=== PATIENT | female | born 1995 | race Caucasian/White ===

== ENCOUNTER 2024-08-22 06:45 | Inpatient (IN) ==
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
[2024-08-22 07:44] LABS: Basophils # (auto) 0.02 K/uL (0.00-0.20); Basophils % (auto) 0.3 %; Eosinophils # (auto) 0.07 K/uL (0.00-0.50); Eosinophils % (auto) 1.1 %; Hematocrit (blood only) 32.6 % (37.0-47.0); Hemoglobin 10.7 g/dl (12.0-16.0); Immature Granulocytes # (auto) 0.04 K/uL (0.01-0.20); Immature Granulocytes % (auto) 0.6 %; Lymphocytes # (auto) 1.99 K/uL (1.20-3.40); Lymphocytes % (auto) 30.6 %; Mean Corpuscular Hemoglobin 27.7 pg (25.0-34.0); Mean Corpuscular Hgb Conc 32.8 g/dL (32.0-36.0); Mean Corpuscular Volume 84.5 fL (80.0-100.0); Mean Platelet Volume 11.4 fL (9.4-12.4); Monocytes # (auto) 0.59 K/uL (0.11-0.59); Monocytes % (auto) 9.1 %; Neutrophils # (auto) 3.79 K/uL (1.40-6.50); Neutrophils % (auto) 58.3 %; Platelet Count 231 K/uL (130-400); RDW Coefficient of Variation 14.4 % (11.5-14.5); Red Blood Count 3.86 M/uL (4.20-5.40)
[2024-08-22] MEDS ORDERED: SODIUM CHLORIDE 0.9% 1,000 ML IV SCH (08:00)
[2024-08-22] MEDS: ACETAMINOPHEN 500 MG TAB PO SCH (08:32)
[2024-08-22] MEDS ORDERED: PHENYLEPHRINE 100MCG/ML 5ML SYR ONE (08:37)
[2024-08-22] MEDS ORDERED: MoRPHine SULFATE PF 1 MG/ML 10 ML AMP/VIAL ONE (08:37)
[2024-08-22] MEDS ORDERED: DEXAMETHASONE SOD INJ 4 MG/ML VIAL ONE (08:37)
[2024-08-22] MEDS ORDERED: fentaNYL citrate PF 100 MCG/2 ML VIAL ONE (08:37)
[2024-08-22] MEDS ORDERED: ONDANSETRON INJ 2 MG/ML 2 ML VIAL ONE (08:37)
[2024-08-22] MEDS ORDERED: PHENYLEPHRINE HCL 25 MG/250 ML NSS IV ONE (08:38)
[2024-08-22] MEDS: SODIUM CHLORIDE 0.9% 1,000 ML IV SCH (09:02)
[2024-08-22] MEDS: CITRIC ACID/SODIUM CITRATE 15 ML UDC PO SCH (10:27)
[2024-08-22] MEDS: ceFAZolin 2000MG 2,000 MG/15 ML SYR IV SCH (10:29)
[2024-08-22] MEDS ORDERED: diphenhydrAMINE 50 MG/ML VIAL IV PRN (10:55)
[2024-08-22] MEDS ORDERED: NALBUPHINE HCL INJ 10 MG/ML AMP IV PRN (10:55)
[2024-08-22] MEDS ORDERED: PROMETHAZINE 6.25 MG/50.25 ML BAG IV PRN (10:55)
[2024-08-22] MEDS ORDERED: NALOXONE HCL 0.4 MG/1 ML VIAL/CARP IV PRN (10:55)
[2024-08-22] MEDS ORDERED: NALOXONE HCL 1 MG in SODIUM CHLORIDE 0.9% 1,000 ML IV PRN (10:55)
[2024-08-22] MEDS ORDERED: NALOXONE HCL 0.08 MG in SYRINGE 1.8 ML IV PRN (10:55)
[2024-08-22] MEDS ORDERED: HYDROmorphone INJ 0.5 MG/0.5 ML SYR IV PRN (10:55)
[2024-08-22] MEDS ORDERED: ONDANSETRON INJ 2 MG/ML 2 ML VIAL IV PRN (10:55)
[2024-08-22] MEDS ORDERED: MoRPHine SULFATE PF 1 MG/ML 10 ML AMP/VIAL INT SPINAL ONE (10:55)
[2024-08-22] MEDS ORDERED: oxyCODONE HCL IR 5 MG TAB (IMMEDIATE RELEASE) PO PRN (10:55)
[2024-08-22] MEDS ORDERED: ePHEDrine sulfate 50 MG/ML AMP IV PRN (10:55)
[2024-08-22] MEDS ORDERED: NO NARCOTICS OR SEDATIVES SCH (11:00)
[2024-08-22] MEDS ORDERED: DC INTRASPINAL MORPHINE SCH (11:00)
[2024-08-22] MEDS: OXYTOCIN 20 UNITS/LR 1,002 ML IV SCH (11:15)
--- NOTE | 2024-08-22 11:54 | Anesthesiology Progress Note ---
Date of Service August 22, 2024 Anesthesia Post Procedure Vital Signs Vital Signs: Temp Pulse Pulse Resp BP BP Pulse Ox 08/22/24 11:51 61 106/56 L 08/22/24 11:50 59 L 98 08/22/24 10:36 71 115/68 08/22/24 09:36 74 95/55 L 08/22/24 09:00 18 08/22/24 09:00 18 08/22/24 08:35 69 114/78 08/22/24 07:46 36.6 C 16 08/22/24 07:24 36.6 C 86 16 104/69 08/22/24 07:01 16 08/22/24 07:01 36.6 C 16 08/22/24 06:59 86 104/69 O2 Del Method 08/22/24 11:51 08/22/24 11:50 08/22/24 10:36 08/22/24 09:36 08/22/24 09:00 08/22/24 09:00 08/22/24 08:35 08/22/24 07:46 Room Air 08/22/24 07:24 08/22/24 07:01 08/22/24 07:01 08/22/24 06:59 Notes Mental Status: alert / awake / arousable and participated in evaluation Patient Amnestic to Procedure: No Nausea / Vomiting: adequately controlled Pain: adequately controlled Airway Patency, RR, SpO2: stable & adequate BP & HR: stable & adequate Hydration State: stable & adequate Neuraxial Anesthesia: was administered and sensory block is resolving Anesthetic Complications: no major complications apparent and Pt Satisfied with anesthetic care
--- NOTE | 2024-08-22 12:06 | Post Operative Brief Note ---
Immediate Post Op Note Date of Surgery August 22, 2024 Pre & Post Diagnosis Operation Date: 08/22/24 09:05 Pre-Op Diagnosis: Breech at term. Post-Op Diagnosis: Breech at term. Delivery of live male child at 1109. I identified the patient and participated in the time-out.: Yes Procedure Operation Date: 08/22/24 09:05 Actual Procedures p Section in LD (Delivery of Baby through Abdominal Incision)delivery of live male child at 1109 - Michelle Howard MD, FACOG Surgeon Michelle Howard MD, FACOG Crew Dispatcher Natalie Domingo RN Quantitative Blood Loss (QBL) 261 Findings Consistent with Post-Op Diagnosis gravid uterus with a small septum in fundus bilateral ovaries and tubes are normal Specimens Specimen Description: A: Placenta hold B: Cord blood Drains Nunes Catheter (inserted after spinal) Anesthesia Type Spinal Complications none Disposition Accompanied Patient To Recovery: Yes Disposition: L&D
[2024-08-22] MEDS ORDERED: MAGNESIUM HYDROXIDE SUSP 30 ML UDC PO PRN (12:08)
[2024-08-22] MEDS ORDERED: BENZOCAINE 20% SPRY 85 APPLN/85 GM CAN EXT PRN (12:08)
[2024-08-22] MEDS ORDERED: CALCIUM CARBONATE 500 MG CHEWABLE TAB PO PRN (12:08)
[2024-08-22] MEDS ORDERED: HYDROCORTISONE ACETATE 25 MG SUPP PR PRN (12:08)
[2024-08-22] MEDS ORDERED: SENNA 8.6 MG TAB PO PRN (12:08)
[2024-08-22] MEDS: KETOROLAC 30 MG/ML VIAL IV SCH (12:28)
--- NOTE | 2024-08-22 12:39 | Operative Report ---
Post Operative Report Pre & Post Diagnosis Operation Date: 08/22/24 09:05 Pre-Op Diagnosis: Breech at term. Post-Op Diagnosis: Breech at term. Delivery of live male child at 1109. I identified the patient and participated in the time-out.: Yes Procedure Operation Date: 08/22/24 09:05 Actual Procedures p Section in LD (Delivery of Baby through Abdominal Incision)delivery of live male child at 1109 - Michelle Howard MD, FACOG Surgeon Michelle Howard MD, FACOG Cloth Napping Supervisor Natalie Domingo RN/ Haritha Roberts RN Quantitative Blood Loss (QBL) 261 Findings Consistent with Post-Op Diagnosis gravid uterus with minor fundal septum present ovaries and tubes are grossly normal Specimens placenta to hold Drains Nunes to straight drainage- clear urine at end of case Anesthesia Type Spinal Complications none Disposition Accompanied Patient To Recovery: Yes Disposition: L&D Indications Persistent breech presentation at term Diet-controlled GDM Description of Procedure After the patient received adequate spinal anesthesia she was prepped and draped in usual sterile fashion. A low transverse skin incision was made with a scalpel and carried to the fascia with the same scalpel. The fascial incision was then extended with Barragan scissors the edges then grasped with Juan clamps and the underlying rectus muscle was bluntly sharply dissected off of the overlying fascia. The rectus muscle were then bluntly divided along the midline and the underlying peritoneum elevated and entered sharply. The bladder was taken down off the anterior surface of the uterus with Metzenbaum scissors and placed behind the bladder blade. The lower uterine segment was entered with a scalpel and extended transversely by stretching the incision in a cephalad and caudad direction. Membranes were ruptured for clear fluid. With moderate fundal pressure, the male was delivered from the brett breech presentation. After the body had been delivered the head following easily. There was a loose nuchal cord present which was reduced after delivery of the head. He was vigorous crying and moving all 4 limbs. The cord was clamped and cut, and the was handed off to Dr. Garcia and nursery staff were in attendance for the delivery. After cord was obtained, the placenta was expressed intact with a three-vessel cord. The uterine cavity was explored and found to be free of any placental tissue or membranes. There was noted to be a very small uterine septum present in the fundus of the uterus. The uterine incision was then closed in 2 layers in a running locking imbricating fashion with 0 Monocryl. Hemostasis noted to be excellent. The posterior cul-de-sac was suctioned for small amount of blood. The uterus was then gently placed back inside the uterus. The incision was examined once more and continue to have excellent hemostasis. The gutters were explored and found the free of any clot or fluid. The rectus muscle were then brought together on the midline with individual stitches of 0 Monocryl. The fascia was closed in a running fashion with 0 Vicryl. The skin edges were closed in a subcuticular fashion with 4-0 Vicryl after irrigating the subcutaneous layer. Mother and infant were doing well after delivery and in stable condition back in labor and delivery. I attest to the content of the Intraoperative Record and any orders documented therein. Any exceptions are noted below. OB Procedure Charges [id number]
[2024-08-22] MEDS: DIPHTHER/TETAN/PERTUS Vaccine (Tdap, Adol/Adult) 0.5mL IM ONE (13:44)
[2024-08-22] MEDS: SIMETHICONE 80 MG CHEW PO SCH (13:55)
[2024-08-22] MEDS: KETOROLAC 30 MG/ML VIAL ONE (15:21)
[2024-08-22] MEDS: ACETAMINOPHEN 325 MG TAB PO SCH (18:11)
[2024-08-22] MEDS: DOCUSATE SODIUM 100 MG CAP PO SCH (21:00)
[2024-08-23] MEDS ORDERED: HYDROmorphone INJ 0.5 MG/0.5 ML SYR IV PRN (04:56)
[2024-08-23] MEDS ORDERED: diphenhydrAMINE 50 MG/ML VIAL IV PRN (04:56)
[2024-08-23] MEDS ORDERED: ONDANSETRON INJ 2 MG/ML 2 ML VIAL IV PRN (04:56)
[2024-08-23] MEDS ORDERED: PROMETHAZINE 12.5 MG/50.5 ML BAG IV PRN (04:56)
[2024-08-23] MEDS ORDERED: oxyCODONE HCL IR 5 MG TAB (IMMEDIATE RELEASE) PO PRN (04:56)
[2024-08-23] MEDS ORDERED: diphenhydrAMINE Capsule 25 MG CAP PO PRN (04:56)
[2024-08-23] MEDS ORDERED: ACETAMINOPHEN 500 MG TAB PO SCH (06:00)
[2024-08-23] MEDS ORDERED: CITRIC ACID/SODIUM CITRATE 15 ML UDC PO SCH (06:00)
[2024-08-23 06:11] LABS: Basophils # (auto) 0.03 K/uL (0.00-0.20); Basophils % (auto) 0.2 %; Eosinophils # (auto) 0.02 K/uL (0.00-0.50); Eosinophils % (auto) 0.2 %; Hematocrit (blood only) 29.8 % (37.0-47.0); Hemoglobin 9.9 g/dl (12.0-16.0); Immature Granulocytes # (auto) 0.06 K/uL (0.01-0.20); Immature Granulocytes % (auto) 0.5 %; Lymphocytes # (auto) 1.74 K/uL (1.20-3.40); Lymphocytes % (auto) 13.1 %; Mean Corpuscular Hgb Conc 33.2 g/dL (32.0-36.0); Mean Corpuscular Volume 84.2 fL (80.0-100.0); Mean Platelet Volume 11.2 fL (9.4-12.4); Monocytes # (auto) 0.53 K/uL (0.11-0.59); Neutrophils # (auto) 10.88 K/uL (1.40-6.50); Platelet Count 194 K/uL (130-400); RDW Coefficient of Variation 14.5 % (11.5-14.5); RDW Standard Deviation 44.3 fL (36.4-46.3); Red Blood Count 3.54 M/uL (4.20-5.40); White Blood Count 13.26 K/ul (4.8-10.8)
[2024-08-23] MEDS: FERROUS SULFATE 325 MG TAB PO SCH (07:37)
[2024-08-23] MEDS: PRENATAL VITAMIN 1 TAB PO SCH (07:37)
--- NOTE | 2024-08-23 07:40 | Obstetrical Progress Note ---
Date of Service August 23, 2024 Assessment & Plan (1) delivery delivered: Plan 30 years P1 foll El LTCS for Breech presentation. Both mom and baby doing well. Continue care as per protocol. Encouraged nursing with mother's milk. Encouraged ambulation. Discharge tomorrow as per protocol. Admission and Anticipated Discharge Date Admission Date: August 22, 2024 Supervising Physician Co-Signing Physician Notes Resident Physician Supervision Note: I was present with Dr. Gonzalez during the history and exam. I discussed the case with the resident and agree with the findings and plan as documented in the note. Any exceptions or clarifications are listed here: stable, routine care. breast feeding. voiding. eating. abd soft ff 2 down nt, incision c/d/i and bruising. a/p pod#1 s/p c/s. hgb noted. doing well. routine care. Documented By: Edelmira Herndon MD, FACOG Subjective 30 years P1 1st POD following delivery for Breech No active complains Both mom and baby doing well. Mom Lying comfortable on bed. Pain: Mild, intermittent, manageable on painkillers. Lochia: Moderate Diet: Regular OB diet Gas: Not aware of passing, but no abdominal distension Peeing: Passed Urine after bowens's removal Ambulation: to Bathroom/ Corridor without any complication Answered her queries. Review of Systems Review of Systems: No SOB, chest pain, leg pain No dizziness, headache, palpitation No Blurring of vision , fever Physical Exam Physical Exam: General: Alert and oriented. No acute distress. CVS: S1 S2+ No murmurs, regular rhythm. Respiratory: CTA bilaterally. No rhonchi, wheezes, or crackles. No increased work of breathing. Abdomen: Bowel sound +. Soft, nontender Uterus: Fundus firm and palpable few cm below the umbilicus. Incision site looks healthy: Dry, No swelling, Mild Erythema below incision site. Lower extremities: No LE edema. No deep calf pain. Results & Data Vital Signs (Past 12 Hours) Vital Signs Temp Pulse Resp BP Pulse Ox O2 Del Method 08/23/24 04:15 36.5 C 65 16 111/66 97 Room Air 08/23/24 04:00 16 96 08/23/24 03:00 17 96 08/23/24 02:00 16 96 08/23/24 01:00 16 96 08/23/24 00:00 16 96 08/23/24 00:00 Room Air 08/23/24 00:00 36.5 C 62 16 102/87 97 Room Air 08/22/24 23:00 16 97 08/22/24 22:00 16 99 08/22/24 21:00 16 98 08/22/24 20:00 16 99 Resident Activity Tracking Resident Involvement: Resident Care Provided Care Provided: OB Delivery
[2024-08-23] MEDS: IBUPROFEN 600 MG TAB PO SCH (11:36)
[2024-08-23] MEDS ORDERED: KETOROLAC 30 MG/ML VIAL IV PRN (12:08)
[2024-08-23] MEDS: bisacodyL 5 MG TABEC PO SCH (20:56)
[2024-08-23 21:32] VITALS: RESP 16
--- NOTE | 2024-08-24 05:53 | Obstetrical Progress Note ---
Date of Service August 24, 2024 Assessment & Plan (1) delivery delivered: Plan 30 years P1 foll El LTCS for Breech presentation. 2nd POD Both mom and baby doing well. Discharge today as per protocol. Admission and Anticipated Discharge Date Admission Date: August 22, 2024 Supervising Physician Co-Signing Physician Notes Resident Physician Supervision Note: I interviewed and examined the patient. Discussed with Dr. Gonzalez and agree with findings and plan as documented in the note. Any exceptions or clarifications are listed here: POD2 doing well. Desires DC home. DC instructions reviewed, followup in office 6w. Rx #10 tabs percocet sent to [facility] pharmacy. Documented By: iMsti Frederick, Subjective 29 years P1 2nd POD following delivery for Breech No active complains Both mom and baby doing well. Mom Lying comfortable on bed. Pain: Mild, intermittent, manageable on painkillers. Lochia: Moderate Diet: Regular OB diet Gas: Not aware of passing, but no abdominal distension Peeing: Passed. Ambulation: to Bathroom/ Corridor without any complication Answered her queries. Review of Systems Review of Systems: No SOB, chest pain, leg pain No dizziness, headache, palpitation No Blurring of vision , fever Physical Exam Physical Exam: General: Alert and oriented. No acute distress. CVS: S1 S2+ No murmurs, regular rhythm. Respiratory: CTA bilaterally. No rhonchi, wheezes, or crackles. No increased work of breathing. Abdomen: Bowel sound +. Soft, nontender Uterus: Fundus firm and palpable few cm below the umbilicus. Incision site looks healthy: Dry, No swelling, Bruising noted below incision site, better than yesterday. Lower extremities: No LE edema. No deep calf pain. Results & Data Vital Signs (Past 12 Hours) Vital Signs Temp Pulse Resp BP Pulse Ox O2 Del Method 08/23/24 23:45 37.2 C 90 16 123/82 97 Room Air 08/23/24 20:40 36.8 C 93 H 16 110/71 96 Room Air Resident Activity Tracking Resident Involvement: Resident Care Provided Care Provided: OB Delivery
[2024-08-24 06:54] LABS: Hematocrit (blood only) 29.4 % (37.0-47.0); Hemoglobin 9.6 g/dl (12.0-16.0)
[2024-08-24 09:44] VITALS: BP 114/78; PULSE 76; TEMP 98.2; O2SAT 98
[2024-08-24] MEDS: IBUPROFEN 600 MG TAB PO PRN (11:22)
[2024-08-24] MEDS ORDERED: bisacodyL 10 MG SUPP PR PRN (12:08)
--- NOTE | 2024-08-24 12:51 | Discharge Summary ---
Date of Service August 24, 2024 Admission HPI Per Admitting Provider Patient is a 29 yo female EDC 08/27/24 presents for primary LTCS because of breech presentation. complicated by diet controlled GDM. testing was reassuring. GBS- negative Blood type- A positive Admission Exam (Per Admitting) Constitutional WD/WN, vitals as above Respiratory normal respiratory effort, lungs clear to auscultation Cardiovascular RRR, no murmur, no edema Psychiatric A+Ox3, euthymic affect Genitourinary OB Exam Abdomen: + fundal height (term), + heart tones (150), + breech and + estimated weight (6-7 pounds) Discharge Data Consultations 08/22/24 06:55 Consult Anesthesiology Stat Procedures Performed Operation Date: 08/22/24 09:05 Actual Procedures p Section in LD (Delivery of Baby through Abdominal Incision)delivery of live male child at [facility] - Michelle Howard MD, [facility] (1) delivery delivered: Plan 30 years P1 foll El LTCS for Breech presentation. 2nd POD Both mom and baby doing well. Discharge today as per protocol. Discharge Plan Discharge Items Patient Disposition: Home - Self-Care Reason For Visit: Breech Presentation Discharge Diagnosis: S/P C section Activity: Per Instructions section Non-emergency contact: Primary Care Provider and Tile Picker Call non-emergency contact if: your pain is worsening and your temperature is above 101 Follow-up/Referrals: PCP,NO [Primary Care Provider] - Diet: Regular OB Addtl Attending Provider Instructions: ACTIVITY RECOMMENDATIONS: * Gradual return to full activity over the next 2-3 weeks. * No lifting - nothing heavier than baby over the next 2-3 weeks. * Do not engage in vigorous exercise, sexual activity or sports until cleared by your physician. * Do not drive or operate any motorized equipment until cleared by your physician. * You may shower/bathe daily. MEDICATIONS: For discomfort or pain, you may use Acetaminophen (Tylenol), Ibuprofen (Advil), or Naproxen (Aleve) following the package directions. For constipation you may use Colace following the package directions. BREAST CARE: If you are not breast feeding: * Wear a supportive bra 24 hours a day for one to two weeks. * Avoid stimulating your breasts and nipples as much as possible during the first few weeks after delivery. * When taking a shower, have the warm water hit your back, not breasts. * When your breasts feel full, apply ice packs. Usually three to four times a day helps ease the discomfort. * Take a mild pain medication (Tylenol / Motrin) when you are uncomfortable. If breast feeding: * Use breast milk to lubricate nipples. Lansinoh cream may be used for sore nipples. You do not need to remove cream prior to breast feeding. If using a different brand of cream, check the label for directions regarding removal of cream prior to nursing. * Wear a supportive bra. * If having problems with breasts or breast feeding, call a [employer] commerce consultant or your health care provider. SPECIAL CARE INSTRUCTIONS: When you are discharged from the hospital, it is important for you to follow the instructions listed below: * During the first week at home, you should be able to care for yourself and your baby. In addition, the usual light household activities are encouraged. * Limit your activities to the way you feel. Do not try to clean the house or move furniture. Be sensible. * If you actively engage in sports and have done so up until the time of your delivery, you may resume these activities as soon as you feel able. This may take up to one month or even longer. Use good judgment. * Continue to take your vitamins for at least six weeks after the of your baby. * Your diet need not be limited unless you were on a special diet before your delivery. Breast-feeding mothers need around 2500 calories per day and at least 64-80 ounces of fluid per day (8 to 10 glasses). * You should eat foods from the four major food groups. Crash diets or fad diets are to be avoided. Eating lean meats, fresh fruits and vegetables, low-fat dairy products, high fiber foods and a regular exercise program, will help you get back to your pre- weight without putting your health at risk. * Constipation is sometimes a problem after delivery. Take a mild laxative as needed. If breast feeding, Milk of Magnesia is acceptable to use. You may use a suppository or Fleets enema. * A daily shower or tub bath is suggested. Wash incision daily with warm soapy water and pat dry. It doesn't need to be covered unless drainage is present. * A bloody vaginal discharge will usually continue until around four weeks . A small amount of bleeding may continue for as long as six weeks. Vaginal discharge changes from the bright red bleeding after delivery to pink then brownish and finally yellowish-pink before becoming white and disappearing. * Bleeding may increase with activity. Your first period may come in 4-8 weeks. If you are breast feeding, your period may be delayed even longer. * [place] (sex) can begin whenever both you and your partner feel comfortable and do not have any form of genital infection. It is recommended that you wait at least six weeks for internal and external healing to occur. If you have questions, please talk to your health care practitioner. A condom should be used to prevent infection and . * Foreplay, gentle intercourse and lubrication is very important the first se veral times to prevent pain. A water-based lubricant such as K-Y jelly or Astroglide may be used. * If you have RH negative blood and your baby is RH positive, you will receive RHOGAM by injection prior to discharge. The nurse will give you a card to keep with you that has the date and place that you received RHOGAM after delivery. * During your care, you had a Rubella screen done to check for the presence of rubella antibodies in your blood. If your test was negative, you will receive a Rubella vaccine prior to discharge. This vaccine may cause a fever, soreness at the injection site and flu-like symptoms. If these symptoms persist, notify your health care practitioner. is not advised for one month after a Rubella vaccine. * Verbalizes understanding of car seat law as reviewed with patient nursing. * Car Seat hand-out given and reviewed with patient by nursing. * Shaken baby information reviewed with patient by nursing. Call you doctor if: * Heavy bleeding (saturating several pads an hour) or passing clots the size of your fist. * A fever >101 degrees F (38.3 degrees C) on two occasions four hours apart and/or chills. * Unusual pain in the pelvic or vaginal areas. * Call the doctor for any increased redness, drainage or swelling around the incision and any pain unrelieved by prescribed pain medication. * "Baby Blues" lasting longer than two weeks. If you have any questions or concerns, call your health care practitioner at . FOLLOW UP VISIT: * Please call the office at to schedule a 6 week examination. It is important you keep this appointment. It is important for you to make arrangements for either yearly or twice yearly check-ups thereafter. Pending Studies at Discharge: No Stand-Alone Forms: My [facility], Smoking Cessation Medications and DC Order Prescriptions: New oxycodone-acetaminophen [Percocet] 5-325 mg tablet 1 tab PO Q6H PRN (Reason: pain) Qty: 10 0RF Continued Vitamin 1 tab PO 1XD Discontinued (DME) Ketone Urine Test Strip See Rx Instructions .MEDSUPPLY Qty: 50 2RF Rx Instructions: As directed to check ketones in urine once a day in the morning (DME) OneTouch Verio test strips Strip See Rx Instructions .MEDSUPPLY Qty: 150 2RF Rx Instructions: check blood sugars 4 times a day (DME) blood-glucose meter [OneTouch Verio Reflect Meter] Misc See Rx Instructions miscellaneous .MEDSUPPLY Qty: 1 0RF Rx Instructions: As directed (DME) lancets [OneTouch Delica Plus Lancet] 33 gauge misc See Rx Instructions .MEDSUPPLY Qty: 150 2RF Rx Instructions: As directed check blood sugars 4 times a day Discharge Orders: Discharge Order (Routine); Ordered 08/24/24 Ordered By: Cindy Contreras/Other Patient Handouts: DVT in , Understanding Depression Admission Data Admit Date/Time: 08/22/24 06:45 Attending Provider: Michelle Howard Admit Provider: Michelle Howard Primary Care Provider: PCP,NO Other Providers: Diego George Other Interventions: Discharge Summary Assessment (RN) Last Done: 08/24/24 10:26 Supervising Physician Co-Signing Physician Notes Resident Physician Supervision Note: I interviewed and examined the patient. Discussed with Dr. Gonzalez and agree with findings and plan as documented in the note. Any exceptions or clarifications are listed here: POD2 doing well. Desires DC home. DC instructions reviewed, followup in office 6w. Rx #10 tabs percocet sent to [facility] pharmacy. Documented By: Misti Frederick DO Coding Level of Care Code 45346 IN/OBS DISCH 30 MIN/LESS Diagnoses delivery delivered O82
[2024-08-24] MEDS ORDERED: ACETAMINOPHEN 325 MG TAB PO PRN (18:08)
== END 2024-08-24 16:50 | disposition home or self-care (01) | DRG 788 ==
LOC: 4S1 06:45 → EDSTATUS 09:05 → 4E2 14:20